=== PATIENT | male | born 1990 | race African-American/Black ===

== ENCOUNTER 2020-10-10 18:54 | Emergency (ER) | payer SELFPAY ==
[~2020-10-10] VITALS: Ht 188 cm; Wt 118.2 kg
[2020-10-10 18:57] VITALS: BP 145/95
== END 2020-10-10 20:30 | disposition home or self-care (01) ==
LOC: EMS 18:54
DX: L02.31 Cutaneous abscess of buttock (principal); L03.317 Cellulitis of buttock
CPT/HCPCS: 99283; Z7502

== ENCOUNTER 2021-05-06 15:17 | Emergency (ER) | payer OTHER ==
[~2021-05-06] VITALS: Ht 182.9 cm; Wt 100.0 kg
[2021-05-06 15:28] VITALS: BP 133/82
== END 2021-05-06 18:21 | disposition left against medical advice (07) ==
LOC: EMS 15:19
DX: Z20.822 Contact with and (suspected) exposure to COVID-19 (principal); Z53.21 Procedure and treatment not carried out due to patient leaving prior to being seen by health care provider